=== PATIENT | male | born 2000 | race Caucasian/White ===

== ENCOUNTER → 2020-04-08 | Outpatient (CLI) | payer BC ==
--- NOTE | 2020-04-08 11:53 | Diagnostic Imaging Report ---
INDICATION: Right thumb injury 3 views of the right thumb show no fracture, dislocation or other acute abnormalities. IMPRESSION: Negative right thumb. Dictated by: Dictated on workstation # [id number]
== END ==
LOC: RAD 10:48
PROVIDERS: ATTEND Nurse Practitioner Family
DX: S69.91XA Unspecified injury of right wrist, hand and finger(s), initial encounter (principal)
CPT/HCPCS: 73140

== ENCOUNTER → 2021-04-18 | Outpatient (CLI) | payer BC ==
--- NOTE | 2021-04-18 15:06 | Diagnostic Imaging Report ---
INDICATION: Pain after injury. EXAMINATION: Right ankle 04/18/2021 FINDINGS: 3 views of the ankle. There is soft tissue swelling about the ankle. No fractures or dislocations appreciated. The ankle mortise and talar dome appear intact. IMPRESSION: 1. Soft tissue swelling with no acute osseous abnormality. If pain persists, a 7-10 day follow-up recommended. Dictated by: Dictated on workstation # [id number]
== END ==
LOC: RAD 14:26
PROVIDERS: ATTEND Nurse Practitioner Primary Care
DX: S99.911A Unspecified injury of right ankle, initial encounter (principal); W10.9XXA Fall (on) (from) unspecified stairs and steps, initial encounter
CPT/HCPCS: 73610